=== PATIENT | female | born 1990 | race Caucasian/White ===

== ENCOUNTER 2022-11-12 01:17 | Day surgery (SDC) | payer OTHER, SELFPAY ==
[2022-10-31 08:20] VITALS: BMI 38.7
--- NOTE | 2022-11-11 20:42 | PM.HPGS ---
History of Present Illness History of Present Illness Consent: Risks, benefits, and alternatives have been discussed and questions answered. Patient agrees to proceed with procedure. Chief complaint: GERD and dysphagia Narrative: Yoko Mehta is a 32 year old female who complains of a 1 year history of intermittent dysphagia with obstruction with solid foods.? Her mother has severe esophagus problems.? The patient has frequent reflux symptoms treated with Tums as needed.? She tries to avoid precipitating foods.? Her previous physician is no longer available.? She has been on Lexapro 10 mg daily for anxiety starting about 1 year ago.? She uses alprazolam about 3 times a week. Review of Systems Review of Systems: All systems reviewed & are unremarkable except as noted in HPI and below PMFSH Past Medical History Medical History Anemia hemoglobin 9.2 on 11/21/2018. Anxiety and depression rx meds BMI 38.0-38.9,adult Chronic anxiety Dysphagia Encounter for screening examination for sexually transmitted disease Encounter for wellness examination in adult GERD (gastroesophageal reflux disease) Kidney stones (~05/01/15) Obesity (BMI 30-39.9) Surgical History Surgical History Delivery by section (11/20/18) primary c/s ; arrest of descent; occiput transverse position History of gynecological procedure (01/23/19) mirena iud insertion Family History Family History Grandparent Diabetes mellitus Maternal grandmother Cerebrovascular accident maternal grandfather Heart disease paternal grandfather Other Carcinoma of colon maternal aunt Social History Social History (Updated 10/01/22 @ 13:58 by Latonya Peralta MA) Smoking status: Never smoker Smoking end date: 03/01/14 Alcohol intake: current Drinks per week: 1 Alcohol use details: social Substance use: never Substance use type: does not use Lack of Transportation: No Lack of Food: Never True Current Housing: I Have Housing Concerned About Future Housing: No Difficulty Paying Gas/Electric Bills: No Difficulty Paying for Meds: No Currently Unemployed: No Education: High School Diploma/GED Difficulty w/ Childcare or Family Care: No Living arrangements: with family Additional living arrangements comments: Occupation/Education: occupation 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 Gender identity (if verbalized by the patient): Female Sexual Orientation (if Verbalized by the Patient): Straight or Heterosexual Spiritual care concerns: No Meds Home Medications and Allergies Home Medications Medication Instructions Recorded Confirmed Type alprazolam 0.25 mg tablet 0.25 mg PO TID PRN Anxiety 03/19/22 10/31/22 History escitalopram oxalate 10 mg tablet 10 mg PO DAILY 03/19/22 10/31/22 History levonorgestrel 21 mcg/24 hours (8 1 device intrauterine ONCE 03/19/22 10/31/22 History yrs) 52 mg intrauterine device (Mirena) Allergies Allergy/AdvReac Type Severity Reaction Status Date / Time Penicillins Allergy Intermediate Rash Verified 11/12/22 09:58 Exam Const: General: alert Orientation/consciousness: patient oriented x3 Resp: Auscultation: clear to auscultation bilaterally Cardio: Rhythm: regular rhythm GI: GI Palp: Yes Soft to palpation and No Tenderness to palpation present (GI) Neuro: General: patient oriented x3 Assessment and Plan Assessment and plan (1) Dysphagia: Code(s): R13.10 - Dysphagia, unspecified Status: Acute Assessment and Plan: EGD with possible biopsy or dilatation or cautery.
[2022-11-12 09:59] VITALS: BP 108/66; PULSE 65; RESP 20; TEMP 36.3; O2SAT 100
[2022-11-12] MEDS: LACTATED RINGERS 1,000 ML 150 ML IV CONT (10:20)
--- NOTE | 2022-11-12 10:48 | WPDANESEPPF ---
Anes - Initial Pre Proc Eval Procedure: Operation Date: 11/12/22 11:15 Proposed Procedures p Esophagogastroduodenoscopy EGD - Pasquale Henry MD Date/Time: 11/12/22 10:48 Surgeon: Pasquale Henry MD Pre Op Diagnosis: GERD and dysphagia Patient Data Age: 32 Gender: F Height: 1.55 m Weight: 93.2 kg Last Vital Signs Temp 97.3 F L 11/12/22 09:59 Pulse 65 11/12/22 09:59 Resp 20 11/12/22 09:59 BP 108/66 11/12/22 09:59 Pulse Ox 100 11/12/22 09:59 O2 Del Method Room Air 11/12/22 09:59 Allergies Allergy/AdvReac Type Severity Reaction Status Date / Time Penicillins Allergy Intermediate Rash Verified 11/12/22 09:58 Home Medications Medication Instructions Recorded Confirmed Type alprazolam 0.25 mg tablet 0.25 mg PO TID PRN Anxiety 03/19/22 10/31/22 History escitalopram oxalate 10 mg tablet 10 mg PO DAILY 03/19/22 10/31/22 History levonorgestrel 21 mcg/24 hours (8 1 device intrauterine ONCE 03/19/22 10/31/22 History yrs) 52 mg intrauterine device (Mirena) Patient hx anesthesia problems: none Family hx anesthesia problems: none Results Review: All pre-operative results and documents have been reviewed as part of the pre-operative evaluation. [facility] Past Medical History Medical History (Updated 10/01/22 @ 14:31 by Pete Stewart MD) Anemia hemoglobin 9.2 on 11/21/2018. Anxiety and depression rx meds BMI 38.0-38.9,adult Chronic anxiety Dysphagia Encounter for screening examination for sexually transmitted disease Encounter for wellness examination in adult GERD (gastroesophageal reflux disease) Kidney stones (~05/01/15) Obesity (BMI 30-39.9) Surgical History Surgical History Delivery by section (11/20/18) primary c/s ; arrest of descent; occiput transverse position History of gynecological procedure (01/23/19) mirena iud insertion Family History Family History Grandparent Diabetes mellitus Maternal grandmother Cerebrovascular accident maternal grandfather Heart disease paternal grandfather Other Carcinoma of colon maternal aunt Social History Social History (Updated 10/01/22 @ 13:58 by Latonya Peralta MA) Smoking status: Never smoker Smoking end date: 03/01/14 Alcohol intake: current Drinks per week: 1 Alcohol use details: social Substance use: never Substance use type: does not use Lack of Transportation: No Lack of Food: Never True Current Housing: I Have Housing Concerned About Future Housing: No Difficulty Paying Gas/Electric Bills: No Difficulty Paying for Meds: No Currently Unemployed: No Education: High School Diploma/GED Difficulty w/ Childcare or Family Care: No Living arrangements: with family Additional living arrangements comments: Occupation/Education: occupation 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 Gender identity (if verbalized by the patient): Female Sexual Orientation (if Verbalized by the Patient): Straight or Heterosexual Spiritual care concerns: No Anes - Eval Final PreProcedure Day of Procedure 11/12/22 10:48 Patient weight: obese Heart: regular rate and rhythm Lungs: clear to auscultation Airway: Mallampati scale class II Neurological: alert and oriented Last oral intake: >/= 8 hours ASA classification: III Emergent: no Anesthetic plan: proceed Anesthesia type and monitoring: general GIVS and standard monitoring Results Review: All pre-operative results and documents have been reviewed as part of the pre-operative evaluation. Informed Consent: The patient's anesthetic plan and its attendant risks and benefits were discussed with the patient/family/POA. Questions were solicited and answers provided to the satisfaction of the patient/family/POA.
[2022-11-12 11:09] VITALS: BP 136/106; PULSE 62; RESP 17; O2SAT 96
[2022-11-12 11:19] VITALS: BP 98/60; PULSE 61; RESP 20; O2SAT 95
[2022-11-12 11:29] VITALS: BP 112/71; PULSE 71; RESP 19; O2SAT 98
== END 2022-11-12 11:42 | disposition home or self-care (01) ==
PROVIDERS: PCP Family Medicine; Visit Provider Internal Medicine Gastroenterology
PROC: 0DJ08ZZ Inspection of Upper Intestinal Tract, Via Natural or Artificial Opening Endoscopic (ICD-10-PCS; CPT 43235; principal; 2022-11-12 11:15)
DX: K22.2 Esophageal obstruction (principal); K20.0 Eosinophilic esophagitis; K21.9 Gastro-esophageal reflux disease without esophagitis; F41.8 Other specified anxiety disorders; E66.9 Obesity, unspecified; Z68.38 Body mass index [BMI] 38.0-38.9, adult
CPT/HCPCS: 43249; 88305; C1726; J2704; J7120

== ENCOUNTER 2024-12-11 12:57 | Outpatient (CLI) | payer OTHER, SELFPAY ==
--- OUTSIDE RECORDS SUMMARY | 2024-12-11 13:06 | XMS_ITS | Clinical Summary ---
Author Organization [facility] Address [address] [place] [address] Care Team Providers Care Clinical Trial Manager Name Role Phone Pete Stewart MD Primary Care Provider [phone] Source Comments [facility],non-owned Affiliates and Associated Physician Practices is amultiple site organization consisting of ambulatory clinics and hospital sitesin [place], [place], [place]. This disclosure is being madepursuant to the Care Everywhere program and may not contain all information available regarding this patient. Last updated 18.[facility] Allergies Active Allergy Reactions Criticality Noted Date Comments Penicillins Rash Medium 03/11/2014 Medications * Be aware that medications may not be up to date on this document. Alwaysverify current medications with the patient. Vit-Fe Fumarate-FA ( vitamin) 28-0.8 MG tablet Take 1 (one) tablet by mouth once daily Active busPIRone (Buspar) 15 MG tablet Take 1 (one) tablet by mouth 2 times daily 60 tablet 1 5 Active busPIRone (Buspar) 10 MG tablet Take 1 (one) tablet by mouth 3 times daily 12/03/19 25 Discontinu ed(Dose Adjustment ) Active Problems Problem Noted Date Diagnosed Date Severe obesity due to excess calories affecting in second trimester 12/02/2024 History of anemia 12/02/2024 History of section 12/02/2024 Estimated Date of Delivery Comme nts Yes 04/02/2025 Based on last me nstrual period of 06/26/2024 Encounters Date Type Department Care Team Description 12/11/2024 Telephone [facility] Maternal & Care [address] [place] [address] Lily Ng RN Question 12/02/2024 10:59 AM CDT - 12/02/2024 11:59 PM CDT Hospital Encounter [facility] [address] [place] [id number] Ariel Light DO Head, Annmarie Vivar MD DONATIONS ATTENDANT Discharge Disposition: Home or Self Care 11/30/2024 1:00 PM CDT - 11/30/2024 11:59 PM CDT Hospital Encounter [facility] [address] [place] [id number] Ariel Light DO DONATIONS ATTENDANT Discharge Disposition: Home or Self Care from Last 3 Months Social History Tobacco Use Types Packs/Day Years Used Date Smoking Tobacco: Never Alcohol Use Standard Drinks/Week Comments Yes 0 (1 standard drink = 0.6 oz pur e alcohol) Estimated Date of Delivery Comme nts Yes 04/02/2025 Based on last sd nstrual period of 06/26/2024 Sex and Gender Information Value Date Recorded Sex Assigned at Not on file Legal Sex Female 6:28 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 Gender Identity Not on file Sexual Orientation Not on file Last Filed Vital Signs Vital Sign Reading Time Taken Comments Blood Pressure 105/57 12/02/2024 11:47 AM CDT Pulse 98 12/02/2024 11:47 AM CDT Temperature 36.9 C (98.5 F) 03/11/2014 10:36 AM CDT Respiratory Rate 20 03/11/2014 10:36 AM CDT Oxygen Saturation 100% 03/11/2014 10:36 AM CDT Inhaled Oxygen Concentration - - Weight 99.3 kg (219 lb) 12/02/2024 11:47 AM CDT Height 165.1 cm (5' 5) 03/11/2014 10:36 AM CDT Body Mass Index - - Plan of Treatment Upcoming Encounters Date Type Department Care Team (Late st Contact Info) Description 01/06/2025 9:00 AM CDT Appointment [facility] Maternal & Care [address] [phone] Health Maintenance Due Date Last Done Comments HIV SCREENING 2007 HEPATITIS C SCREENING 06/15/2010 DTAP/TDAP/TD VACCINES (1 - Tdap) 2011 HEPATITIS B VACCINE (1 of 3 - 19+ 3-dose series) 2011 PAP SMEAR 2013 COVID-19 VACCINE (1 - 2023-2 5 season) 2024 DEPRESSION SCREENING 07/01/2024 OB-ONE HOUR GLUCOSE 12/25/2024 OB-TDAP CURRENT 01/01/2025 07/01/2006 OB-RHOGAM INJECTION 01/08/2025 INFLUENZA VACCINE (Season Ended) 2025 Respiratory Syncytial Virus (RSV) Vaccine Pt: or over 60 yrs (1 - Risk 1-dose series) 03/01/2025 ZOSTER VACCINE (1 of 2) 2042 HIB VACCINE Aged Out No longer eligi ble based on patient's age to complete this topic HPV VACCINE Aged Out No longer eligi ble based on patient's age to complete this topic MENINGOCOCCAL (Group B) VACC INE SHARED DECISION-MAKING Aged Out No longer eligibl e based on patient's age to complete this topic MENINGOCOCCAL GROUPS A/C/Y/W VACCINE Aged Out No longer eligible b ased on patient's age to complete this topic PNEUMOCOCCAL VACCINE Aged Out No long er eligible based on patient's age to complete this topic Procedures Procedure Name Priority Date/Time Associated Diagnosis Comments SONOGRAM - COMPLETE Routine 11/30/2024 1 2:56 PM CDT Obesity in , antepartum (HCC) Encounter for anatomic survey (HCC) H/O: from Last 3 Months Results * SONOGRAM - COMPLETE (11/30/2024 12:56 PM CDT) Linked Results Indication ======== Anatomy Survey Obesity, Class III prior primary LTCS History ====== OB History 2. Para 1 [id number] 1. live 11/20/2018. Gest. age 39 w + 0 d. Weight 3,622 g. Sex of child: male. Details: delivery (primary LTCS) failure to progress in labor (2nd stage) Lab Tests Test Date Result NIPT Low risk, Male (per patient) Maternal Assessment Physical Exam Height 155 cm, 5 ft 1 in. Weight 99 kg, 218 lb. Initial weight 93 kg, 206 lb. BMI 41.19 kg/m . Initial BMI 38.92 kg/m . Weight gain 5 kg, 12 lb Method ====== Transabdominal and transvaginal ultrasound examination. View: Sufficient ========= Park . Number of fetuses: 1 Dating ====== Date Details Gest. age AKBAR LMP 06/26/2024 22 w + 3 d 04/02/2025 Previous U/S 09/09/2024 GA, GA 11 w + 1 d 22 w + 6 d 03/30/2025 U/S 11/30/2024 based upon AC, BPD, Femur, HC 23 w + 1 d 03/28/2025 Assigned dating based on the LMP, selected on 11/30/2024 22 w + 3 d 04/02/2025 General Evaluation Cardiac activity present. FHR 152 bpm. Presentation: cephalic Placenta: Placental site: anterior no previa. Placental cxth-wg-gquzridm os distance 69 mm Umbilical cord: Cord vessels: 3 vessel cord. Insertion site: normal insertion Amniotic fluid: Amount of AF: normal. MVP 6.3 cm Biometry BPD 54.1 mm 22w 3d 48% Hadlock HC 211.4 mm 23w 1d 69% Hadlock Cerebellum tr 24.9 mm 83% [place] Nuchal fold 4.1 mm AC 195.1 mm 24w 1d 90% Hadlock Femur 39.9 mm 22w 6d 54% Hadlock Humerus 41.2 mm 25w 0d 98% Jackson HC / AC 1.08 -/- Hadlock Weight Calculation: EFW 603 g 90% Hadlock EFW (lb,oz) 1 lb 5 oz EFW by Hadlock ([id number]) Head / Face / Neck Biometry: CM 5.9 mm 61% Nicolaides LGA Growth Overview Exam date GA BPD (mm) HC (mm) AC (mm) FL (mm) HL (mm) EFW (g) 11/30/2024 22w 3d 54.1 48% 211.4 69% 195.1 90% 39.9 54% 41.2 98% 603 90% Anatomy The following structures appear normal: Head / Neck Cranium. Lateral ventricles. Choroid plexus. Midline falx. Cavum septi pellucidi. Cerebellum. Cisterna magna. Thalami. Nuchal fold. Face Lips. Profile. Nose. Nasal bone. Orbits. Heart / Thorax 4-chamber view. RVOT view. LVOT view. 3-vessel view. 3-vtjvvy-elbkgfz view. Situs. Aortic arch view. Bicaval view. Ductal arch view. Great vessels. Right lung. Left lung. Diaphragm. Abdomen Cord insertion. Stomach. Kidneys. Bladder. Bowel. Genitals. Spine Cervical spine. Thoracic spine. Lumbar spine. Sacral spine. Extremities / Skeleton Arms. Hands. Legs. Feet. sex: male. Maternal Structures Cervix Normal Approach - Transvaginal: Cervical length 5.60 cm Funneling absent Right Ovary Normal Left Ovary Normal Impression ========= Here today for anatomical survey. She had opted for NIPT which was reported as low risk. Single live intrauterine at 22w 3d The size is suspected LGA by her established dates. The amniotic fluid volume is normal. Normal appearing anterior placenta. No evidence of an accreta. The transvaginal cervical length is normal, measuring 5.6 cm long and closed. No funneling. No major malformations were seen within the limitations of ultrasound. Comment ======== The biometry is showing good interval growth and the estimated weight is suspected LGA she is well dated by LMP and 11 week ultrasound. This is most likely constitutional due to the fact that her prior child at term weight 8 lb. No prior history of GDM. But can not rule out GDM with certainty and recommend glucose screen as scheduled by her primary OB provider. Normal-appearing anterior placenta. No evidence of an accreta. However ultrasound is not always diagnostic for an accreta and would recommend clinical correlation light of prior section. The anatomical survey showed no gross abnormalities. Both ultrasound and screening/testing have their limitations in detecting all congenital anomalies and chromosomal abnormalities/inh erited disorders or genetic syndromes. Follow-up ======== Due to increased BMI greater than 35 potential for poor outcome and suspected LGA recommend serial growth ultrasounds every 4-6 weeks starting at 28 weeks and to initiate weekly testing at 36 weeks due to the increased BMI. Pre term labor and preeclampsia precautions along with kick counts. Thank you for allowing us to partake in your patient's care. Coding ====== Procedures 19157: US Preg Uterus Detailed 18197: US Preg Uterus Transvaginal Dental Fix RX PACS Anatomical Region Laterality Modality Other 11/30/2024 12:5 6 PM CDT us Jacek Godoy MD [facility] ORDERABLES Edited Result - Final from Last 3 Months Insurance [address] [place], [place] [address]N[employer] * Guarantor: Yoko Jain Account Type Relation to Patient Date of Phone Billing Address Personal/Family Spouse Care Teams Clinical Trial Manager Relationship Specialty Start Date End Date Pete Stewart MD PCP - General 03/11/14
--- OUTSIDE RECORDS SUMMARY | 2024-12-11 13:06 | XMS_ITS | Encounter Summary ---
Author Organization [facility] Address [address] [place] [address] Care Team Providers Care Electrical Research Engineer Name Role Phone Pete Stewart MD Primary Care Provider [phone] Reason for Visit * Reason Onset Date Comments Question 12/11/2024 Encounter Details Date Type Department Care Team (Late Contact Info) Description 12/11/2024 Telephone [facility] Maternal & Care [address] [place] [address] Lily Ng RN Question Social History Tobacco Use Types Packs/Day Years Used Date Smoking Tobacco: Never Alcohol Use Standard Drinks/Week Comments Yes 0 (1 standard drink = 0.6 oz pur e alcohol) Estimated Date of Delivery Comme nts Yes 04/02/2025 Based on last me nstrual period of 06/26/2024 Sex and Gender Information Value Date Recorded Sex Assigned at Not on file 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
[2024-12-11 13:46] VITALS: BP 117/68; PULSE 91
[2024-12-11 13:55] LABS: Basophils Absolute Auto 0.1 K/mm3 (0.0-0.1); Basophils Percent Auto 0.4 % (0.2-1.2); Eosinophils Absolute Auto 0.6 K/mm3 (0-0.3); Eosinophils Percent Auto 3.8 % (0-4.4); Hematocrit 34.2 % (37.0-47.0); Hemoglobin 11.1 g/dL (12.0-15.0); Immature Granulocyte Absolute 0.31 K/mm3 (0.00-0.031); Immature Granulocyte Percent A 2.1 % (0-0.5); Lymphocytes Absolute Auto 2.02 K/mm3 (0.9-3.2); Lymphocytes Percent Auto 13.5 % (18.3-44.2); Mean Corpuscular HGB Conc 32.5 g/dl (32-36); Mean Corpuscular Hemoglobin 28.4 pg (26-34); Mean Corpuscular Volume 87.5 fl (80-100); Mean Platelet Volume 10.4 fl (7.4-10.4); Monocytes Absolute Auto 0.8 K/mm3 (0.1-0.6); Monocytes Percent Auto 5.2 % (2.6-8.5); Neutrophils Absolute Auto 11.2 K/mm3 (1.3-6.7); Platelet Count Result 236 k/mm3 (150-375); Red Blood Count 3.91 M/mm3 (4.2-5.4); Red Cell Distribution Width 13.6 % (11.5-14.5); White Blood Count 14.9 K/mm3 (4.5-10.0)
[2024-12-11 13:59] LABS: Alanine Aminotransferase 16 U/L (6-35); Albumin Level 3.6 g/dL (3.5-5.1); Alkaline Phosphatase 71 U/L (38-126); Anion Gap 7 mmol/L (4-12); Aspartate Amino Transferase 19 U/L (14-36); Bilirubin,Total 0.2 mg/dL (0.2-1.3); Blood Urea Nitrogen 6 mg/dL (7-17); Calcium 9.8 mg/dL (8.4-10.2); Carbon Dioxide 21 mmol/L (22-30); Chloride 108 mmol/L (98-107); Estimated Glomerular Filt Rate > 60; Glucose 95 mg/dL (65-110); Potassium 3.9 mmol/L (3.4-5.0); Sodium 136 mmol/L (137-145); Total Protein 6.6 g/dL (6.3-8.2); Uric Acid 4.7 mg/dL (2.5-7.5)
[2024-12-11 14:01] VITALS: BP 112/70; PULSE 97
[2024-12-11 14:12] LABS: Add Urine Microscopic? YES; Appearance Urine Clear (Clear); Bacteria Urine None Seen /hpf; Bilirubin Urine Negative (Negative); Blood Urine Negative (Negative); Color Urine Yellow (Yellow); Glucose Urine UA Negative (Negative); Ketones Urine Negative (Negative); Leukocyte Esterase Ur Trace LEU/UL (Negative); Nitrate Urine Negative (Negative); Non Pathogenic Casts 0-2; Protein Urine Negative (Negative); RBC Urine 0-2 /hpf (0-2); Specific Grav Ur 1.007 (1.001-1.035); Squamous Epithelial Cell Urine None Seen /hpf (Few); Urobilinogen Urine 0.2 mg/dL (<2.0); WBC Urine 0-5 /hpf (0-3)
[2024-12-11 14:15] LABS: Creatinine Urine 32.5 mg/dL; Total Protein Urine Random 18 mg/dL; Ur Ttl Prot Creatinine Ratio 0.55 mg/mg (0-0.20)
[2024-12-11 14:16] VITALS: BP 115/62; PULSE 83
[2024-12-11 14:49] VITALS: BP 115/69; PULSE 99; RESP 16; TEMP 36.6
--- NOTE | 2024-12-11 14:54 | PC.NURSE ---
1445--Pt sent home with 24 hour urine and directions. Has appt in office on 12/14
== END 2024-12-11 14:45 | disposition home or self-care (01) ==
LOC: ANHOBOP 13:03 → ANHOBPP 13:39
PROVIDERS: Obstetrics & Gynecology; PCP Nurse Practitioner Family; Visit Provider Obstetrics & Gynecology
DX: O13.9 Gestational [pregnancy-induced] hypertension without significant proteinuria, unspecified trimester (principal); Z3A.00 Weeks of gestation of pregnancy not specified
CPT/HCPCS: 36415; 59025; 80053; 81001; 82570; 84156; 84550; 85025; 99199

== ENCOUNTER 2024-12-13 14:15 | Outpatient (NON) | payer OTHER, SELFPAY ==
--- OUTSIDE RECORDS SUMMARY | 2024-12-13 14:23 | XMS_ITS | Clinical Summary ---
Author Organization [facility] Address [address] [place] [address] Care Team Providers Care Restrooms Or Lounges Maid Name Role Phone Pete Stewart MD Primary Care Provider [phone] Source Comments [facility],non-owned Affiliates and Associated Physician Practices is amultiple site organization consisting of ambulatory clinics and hospital sitesin [place], [place], [place] and [place]. This disclosure is being madepursuant to the Care Everywhere program and may not contain all information available regarding this patient. Last updated 18.[facility] Allergies Active Allergy Reactions Criticality Noted Date [...] Type Department Care Team Description 12/11/2024 Telephone [facility] Maternal & Care [address] [place] [address] Lily Ng RN Question 12/02/2024 10:59 AM CDT - 12/02/2024 11:59 PM CDT Hospital Encounter [facility] M[facility] & [facility] [address] [place] [id number] Ariel Light DO Head, Annmarie Vivar MD EDITOR & CO FOUNDER Discharge Disposition: Home or Self Care 11/30/2024 1:00 PM CDT - 11/30/2024 11:59 PM CDT Hospital Encounter [facility] Care [address] [place] [id number] Ariel Light DO EDITOR & CO FOUNDER Discharge Disposition: Home or Self Care from Last 3 Months Social History Tobacco Use Types Packs/Day Years Used Date Smoking Tobacco: Never Alcohol Use Standard Drinks/Week Comments Yes 0 (1 standard drink = 0.6 oz pur e alcohol) Estimated Date of Delivery Comme nts Yes 04/02/2025 Based on last de nstrual period of 06/26/2024 Sex and Gender Information Value Date Recorded Sex Assigned at Not on file Legal Sex Female 6:28 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 Para 1 [id number] 1. live 11/20/2018. Gest. age 39 w [...] Placenta: Placental site: anterior no previa. Placental nzem-jv-jbgvljlg os distance 69 mm Umbilical cord: Cord [...] 1 lb 5 oz EFW by Hadlock ([id number]) Head / Face / Neck Biometry: CM [...] view. RVOT view. LVOT view. 3-vessel view. 5-rrujsk-pxqdroz view. Situs. Aortic arch view. Bicaval view. [...] in your patient's care. Coding ====== Procedures 31884: US Preg Uterus Detailed 11797: US Preg Uterus Transvaginal Topple Track PACS Anatomical Region Laterality Modality Other 11/30/2024 12:5 6 PM CDT us Jacek Godoy MD [facility] ORDERABLES Edited Result - Final from Last 3 Months Insurance [address] [place], [place] [address]NICK [employer] * Guarantor: Yoko Jain Account Type Relation to Patient Date of Phone Billing Address Personal/Family Spouse Care Teams Restrooms Or Lounges Maid Relationship Specialty Start Date End Date Pete Stewart MD PCP - General 03/11/14
[2024-12-13 14:56] VITALS: BMI 41.2
[2024-12-13 15:43] LABS: Collection Time Urine 24 HOURS; Patient Weight 218 Lbs
[2024-12-13 15:48] LABS: Total Volume 24 Hour Urine 3200 ml
[2024-12-13 15:53] LABS: Specific Gravity Ur 1.012
[2024-12-13 15:59] LABS: Creatinine Clearance Urine 222.3 ml/min (75-125); Creatinine Urine 62.1 mg/dL; Serum Creat 0.55; Total Protein Urine 24 Hr 416 mg/24hr (28-141); Total Protein Urine Random 13 mg/dL
== END 2024-12-13 14:16 | disposition home or self-care (01) ==
LOC: ANHOBOP 14:21
PROVIDERS: PCP Nurse Practitioner Family; Visit Provider Obstetrics & Gynecology
DX: Z34.90 Encounter for supervision of normal pregnancy, unspecified, unspecified trimester (principal); Z3A.00 Weeks of gestation of pregnancy not specified
CPT/HCPCS: 81050; 82575; 84156

== ENCOUNTER 2025-03-25 09:00 | Inpatient (IN) | payer OTHER, SELFPAY ==
[2025-03-25] VITALS (50 sets, daily range): BP systolic 81–186; BP diastolic 30–118; PULSE 74–173; RESP 16–19; TEMP 36.1–37.1; O2SAT 95–100; BMI 42.9
[2025-03-25 12:28] LABS: Hematocrit 40.8 % (37.0-47.0); Hemoglobin 13.0 g/dL (12.0-15.0); Immature Granulocyte Percent A 1.9 % (0-0.5); Lymphocytes Absolute Auto 1.95 K/mm3 (0.9-3.2); Mean Corpuscular HGB Conc 31.9 g/dl (32-36); Mean Corpuscular Hemoglobin 27.5 pg (26-34); Mean Corpuscular Volume 86.4 fl (80-100); Nucleated Red Blood Cells Absolute Auto 0.000 K/mm3 (0.0-0.012); Nucleated Red Blood Cells Perc 0.0 % (0.0-0.2); Platelet Count Result 225 k/mm3 (150-375); Red Blood Count 4.72 M/mm3 (4.2-5.4); White Blood Count 15.7 K/mm3 (4.5-10.0)
[2025-03-25] MEDS: ACETAMINOPHEN 500 MG TABLET 1000 MG PO ×2 (12:48→20:25)
[2025-03-25] MEDS: fentaNYL CITRATE INJ (*CRX) 100 MCG/2 ML VIAL IV PUSH (12:51)
[2025-03-25] MEDS: LACTATED RINGERS 1,000 ML 125 ML IV CONT (13:01)
[2025-03-25 13:15] LABS: Syphilis IgG/IgM Antibody Non-Reactive (Nonreactive)
--- NOTE | 2025-03-25 13:27 | P.PNAN_ITS ---
Anes - Initial Pre Proc Eval Procedure: Operation Date: 03/25/25 14:00 Proposed Procedures p Repeat Section with Tubal Ligation - Jacek Godoy MD Date/Time: 03/25/25 13:27 Surgeon: Jacek Godoy MD Pre Op Diagnosis: C Section Patient Data Age: 34 Gender: F Height: 1.55 m Weight: 103 kg Last Vital Signs Pulse Ox 99 03/25/25 13:19 O2 Del Method Room Air 03/25/25 13:10 Allergies Allergy/AdvReac Type Severity Reaction Status Date / Time Penicillins Allergy Intermediate Rash Verified 03/22/25 09:06 Latex, Natural Rubber Allergy swelling Verified 03/22/25 09:06 Home Medications ?Medication ?Instructions ?Recorded ?Confirmed ?Type docosahexaenoic acid 200 mg mg PO 08/19/24 03/22/25 Hi story capsule ( DHA) buspirone 10 mg tablet 15 mg PO BID 12/14/24 History Laboratory Tests 03/25/25 12:22 WBC 15.7 H K/mm3 (4.5-10.0) RBC 4.72 M/mm3 (4.2-5.4) Hgb 13.0 g/dL (12.0-15.0) Hct 40.8 % (37.0-47.0) MCV 86.4 fl (80-100) MCH 27.5 pg (26-34) MCHC 31.9 L g/dl (32-36) RDW 14.5 % (11.5-14.5) Plt Count 225 k/mm3 (150-375) MPV 10.9 H fl (7.4-10.4) Immature Gran % (Auto) 1.9 H % (0-0.5) Neut % (Auto) 78.8 H % (45.5-73.1) Lymph % (Auto) 12.4 L % (18.3-44.2) [place] % (Auto) 4.3 % (2.6-8.5) Eos % (Auto) 2.2 % (0-4.4) Baso % (Auto) 0.4 % (0.2-1.2) Lymph # (Auto) 1.95 K/mm3 (0.9-3.2) [place] # (Auto) 0.7 H K/mm3 (0.1-0.6) Eos # (Auto) 0.4 H K/mm3 (0-0.3) Baso # (Auto) 0.1 K/mm3 (0.0-0.1) Abs Immat Gran (auto) 0.30 H K/mm3 (0.00-0.031) Absolute Neuts (auto) 12.3 H K/mm3 (1.3-6.7) Absolute Nucleated RBC 0.000 K/mm3 (0.0-0.012) Nucleated RBC % 0.0 % (0.0-0.2) Syphilis IgG/IgM Ab Non-reactive (Nonreactive) Blood Type O Positive Antibody Screen Negative Patient hx anesthesia problems: none Family hx anesthesia problems: none Results Review: All pre-operative results and documents have been reviewed as part of the pre-operative evaluation. [facility] Past Medical History Medical History BMI 37.0-37.9, adult Encounter for IUD removal Elevated TSH BMI 33.0-33.9,adult Seasonal allergies Benign esophageal stricture (~11/12/22) EGD with benign-appearing distal esophageal stricture dilated 11/12/2022. Biopsy reveals diffuse eosinophilic esophagitis Encounter for wellness examination in adult Anemia hemoglobin 9.2 on 11/21/2018. Hemoglobin 14.0 with iron 83 with 27% saturation and ferritin 86 with vitamin B12 1200 1, folic acid 10.5 on 10/26/2022. BMI 38.0-38.9,adult Obesity (BMI 30-39.9) Chronic anxiety GERD (gastroesophageal reflux disease) EGD 11/12/2022 with biopsy showing esophagitis with eosinophils. Dysphagia Esophageal stricture at the GEJ, dilated on EGD 11/12/2022. Dr. Henry Encounter for screening examination for sexually transmitted disease Kidney stones (~05/01/15) Anxiety and depression rx meds Surgical History Surgical History History of gynecological procedure (01/22/24) mirena iud removal Delivery by section (11/20/18) primary c/s ; arrest of descent; occiput transverse position History of gynecological procedure (01/23/19) mirena iud insertion Family History Family History Grandparent Diabetes mellitus Maternal grandmother Cerebrovascular accident maternal grandfather Heart disease paternal grandfather Other Carcinoma of colon maternal aunt Social History Social History Smoking status: Never smoker Second hand tobacco smoke exposure: No Smoking end date: 03/01/14 Alcohol intake: former Drinks per week: 1 Alcohol use details: social Substance use: never Substance use type: does not use Do You Feel Safe in your Home?: Yes Lack of Transportation: No Lack of Food: Never True Current Housing: I Have Housing Concerned About Future Housing: No Difficulty Paying Gas/Electric Bills: No Difficulty Paying for Meds: No Currently Unemployed: No Education: High School Diploma/GED Difficulty w/ Childcare or Family Care: No Living arrangements: with family Additional living arrangements comments: Occupation/Education: occupation 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 Gender identity (if verbalized by the patient): Female Sexual Orientation (if Verbalized by the Patient): Straight or Heterosexual Spiritual care concerns: No Anes - Eval Final PreProcedure Day of Procedure 03/25/25 13:27 Patient weight: morbidly obese Heart: regular rate and rhythm Lungs: clear to auscultation Airway: Mallampati scale class II Neurological: alert and oriented Last oral intake: >/= 8 hours ASA classification: III Emergent: no Anesthetic plan: proceed Anesthesia type and monitoring: regional spinal and standard monitoring Results Review: All pre-operative results and documents have been reviewed as part of the pre- operative evaluation. Informed Consent: The patient's anesthetic plan and its attendant risks and benefits were discussed with the patient/family/POA. Questions were solicited and answers provided to the satisfaction of the patient/family/POA.
[2025-03-25] MEDS: FAMOTIDINE 20 MG/2 ML VIAL IV PUSH (13:36)
[2025-03-25] MEDS: ONDANSETRON INJ 4 MG/2 ML VIAL IV PUSH (13:36)
--- NOTE | 2025-03-25 13:47 | PM.IMHP ---
H&P: HPI History of Present Illness Date/Time: 03/25/25 13:47 34-year-old 2 para 100 female presents at 3867 weeks gestation early labor. She has had a prior delivery and is scheduled for repeat delivery tomorrow, in labor today with no rupture membranes or bleeding and therefore we will proceed today with her delivery. Chief Complaint: Review of Systems Review of Systems: All systems reviewed & are unremarkable except as noted in HPI and below PMFSH Past Medical History Medical History BMI 37.0-37.9, adult Encounter for IUD removal Elevated TSH BMI 33.0-33.9,adult Seasonal allergies Benign esophageal stricture (~11/12/22) EGD with benign-appearing distal esophageal stricture dilated 11/12/2022. Biopsy reveals diffuse eosinophilic esophagitis Encounter for wellness examination in adult Anemia hemoglobin 9.2 on 11/21/2018. Hemoglobin 14.0 with iron 83 with 27% saturation and ferritin 86 with vitamin B12 1200 1, folic acid 10.5 on 10/26/2022. BMI 38.0-38.9,adult Obesity (BMI 30-39.9) Chronic anxiety GERD (gastroesophageal reflux disease) EGD 11/12/2022 with biopsy showing esophagitis with eosinophils. Dysphagia Esophageal stricture at the GEJ, dilated on EGD 11/12/2022. Dr. Henry Encounter for screening examination for sexually transmitted disease Kidney stones (~05/01/15) Anxiety and depression rx meds Surgical History Surgical History History of gynecological procedure (01/22/24) mirena iud removal Delivery by section (11/20/18) primary c/s ; arrest of descent; occiput transverse position History of gynecological procedure (01/23/19) mirena iud insertion Family History Family History Grandparent Diabetes mellitus Maternal grandmother Cerebrovascular accident maternal grandfather Heart disease paternal grandfather Other Carcinoma of colon maternal aunt Social History Social History Smoking status: Never smoker Second hand tobacco smoke exposure: No Smoking end date: 03/01/14 Alcohol intake: former Drinks per week: 1 Alcohol use details: social Substance use: never Substance use type: does not use Do You Feel Safe in your Home?: Yes Lack of Transportation: No Lack of Food: Never True Current Housing: I Have Housing Concerned About Future Housing: No Difficulty Paying Gas/Electric Bills: No Difficulty Paying for Meds: No Currently Unemployed: No Education: High School Diploma/GED Difficulty w/ Childcare or Family Care: No Living arrangements: with family Additional living arrangements comments: Occupation/Education: occupation 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 Gender identity (if verbalized by the patient): Female Sexual Orientation (if Verbalized by the Patient): Straight or Heterosexual Spiritual care concerns: No Meds Home Medications and Allergies Home Medications ?Medication ?Instructions ?Recorded ?Confirmed ?Type docosahexaenoic acid 200 mg mg PO 08/19/24 03/22/25 History capsule ( DHA) buspirone 10 mg tablet 15 mg PO BID 12/14/24 03/22/25 History Allergies Allergy/AdvReac Type Severity Reaction Status Date / Time Penicillins Allergy Intermediate Rash Verified 03/22/25 09:06 Latex, Natural Rubber Allergy swelling Verified 03/22/25 09:06 Vital Signs Vital Signs - 24 hr 03/25/25 12:54 03/25/25 12:59 03/25/25 13:04 Pulse Oximetry 98 100 95 Oxygen Delivery 03/25/25 13:09 03/25/25 13:10 03/25/25 13:14 Pulse Oximetry 97 100 Oxygen Delivery Room Air 03/25/25 13:19 Pulse Oximetry 99 Oxygen Delivery Exam Resp: Effort & Inspection: normal respiratory effort Auscultation: clear to auscultation bilaterally Cardio: Rate: regular rate Rhythm: regular rhythm GI: Inspection: normal to inspection Auscultation: normal bowel sounds : Bimanual exam- vagina & uterus: enlarged (Fundal height 40cm heart tone 140) H&P: Results Labs Labs: Short CBC 03/25/25 Range/Units 12:22 WBC 15.7 H (4.5-10.0) K/mm3 Hgb 13.0 (12.0-15.0) g/dL Hct 40.8 (37.0-47.0) % Plt Count 225 (150-375) k/mm3 Assessment and Plan Assessment and plan (1) 39 weeks gestation of : Code(s): Z3A.39 - 39 weeks gestation of Status: Acute (2) Previous delivery affecting : Code(s): O34.219 - Maternal care for unspecified type scar from previous delivery Status: Acute
--- OUTSIDE RECORDS SUMMARY | 2025-03-25 14:32 | XMS_ITS | Clinical Summary ---
Author Organization [facility] Address [address] [place] [address] Care Team Providers Care English Language Learner Teacher Name Role Phone Claudette Kruger DONALD Primary Care Provider [phone] Allergies Active Allergy Reactions Criticality Noted Date Comments Penicillins Rash Medium 03/11/2014 Medications ALPRAZolam 0.5 MG tablet Take 1 tablet (0.5 mg total) by mouth nightly as needed for Sleep. Active escitalopram 10 MG tablet Take 1 tablet (10 mg total) by mouth daily. Active ondansetron (ZOFRAN ODT) 4 MG disintegrating tablet Take 1 tablet (4 mg total) by mouth every 8 (eight) hours as needed for Nausea. 15 tablet 2 Active dextromethorphan-gu aiFENesin ER (MUCINEX DM) 30-600 MG TABLET SR 12 HR 12 hr tabletIndications:A cute cough,Influenza A Take 1 tablet by mouth every 12 (twelve) hours as needed. 28 tablet 2 Active methylPREDNISolone, CONSTANZA, (MEDROL DOSEPAK) 4 MG tabletIndications:I nfluenza A,Fluid level behind tympanic membrane of both ears Take 1 tablet (4 mg total) by mouth daily. 6 TABLETS ON DAY ONE, 5 TABLETS DAY TWO, 4 TABLETS DAY THREE, 3 TABLETS DAY FOUR, 2 TABLETS DAY FIVE, AND 1 TABLET DAY SIX 1 each 2 Active Family History Medical History Relation Comments Diabetes Father Heart Disease Maternal Grandfather Relation Status Comments Father Maternal Grandfather Social History Tobacco Use Types Packs/Day Years Used Date Smoking Tobacco: Never Smokeless Tobacco: Never Tobacco Cessation:Counseling Given: No Alcohol Use Standard Drinks/Week Comments No 0 (1 standard drink = 0.6 oz pur e alcohol) AUDIT-C Answer Date Recorded Frequency of Alcohol Consumption Never 07/06/2019 Average Number of Drinks Not on file 020 Frequency of Binge Drinking Not on file 11/2019 Comments No Sex and Gender Information Value Date Recorded Sex Assigned at Not on file Legal Sex Female 7:02 PM CDT Gender Identity Not on file Sexual Orientation Not on file Last Filed Vital Signs Vital Sign Reading Time Taken Comments Blood Pressure 104/66 11/28/2023 12:53 AM CDT Pulse 85 11/28/2023 12:53 AM CDT Temperature 36.7 C (98 F) 11/28/2023 12:53 AM CDT Respiratory Rate 16 11/28/2023 12:53 AM CDT Oxygen Saturation 97% 11/28/2023 12:53 AM CDT Inhaled Oxygen Concentration - - Weight 78 kg (172 lb) 11/27/2023 11:27 PM CDT Height 154.9 cm (5' 1) 11/27/2023 11:27 PM CDT Body Mass Index 32.5 11/27/2023 11:27 PM CDT Plan of Treatment Health Maintenance Due Date Last Done Comments Cervical Cancer Screening Pap Smear (Age 30 to 64) Every 3 Years 1992 Annual Physical 1995 Hepatitis C 2010 DTaP, Tdap and Td Vaccines (6 - Td or Tdap) 07/01/2016 07/01/2006, 11/02/1998, 04/20/1998, Additional history exists HPV Vaccines (1 - 3-dose SCDM series) 2019 Cervical Cancer Screening Pap with HPV Testing (Age 30 to 64) Every 5 Years 2022 Cervical Cancer Screening with HPV 2022 COVID-19 Vaccine ( season) 2025 Hepatitis B Vaccines Completed 07/26/2003, 01/22/2003, 12/23/2002 Meningococcal B Vaccine Aged Out No l onger eligible based on patient's age to complete this topic Meningococcal Vaccine Aged Out No allison simon eligible based on patient's age to complete this topic Pneumococcal Vaccine: Pediatrics (0 to 5 Years) and At-Risk Patients (6 to 49 Years) Aged Out No longer eligible based on patient's age to complete this topic RSV Immunizations Under 20 Months Aged Out No longer eligible based on patient's age to complete this topic Insurance [employer] Care Teams English Language Learner Teacher Relationship Specialty Start Date End Date Claudette Kruger APNP [address] [phone] PCP - General Nurse Practitioner Family 11/27/23
--- OUTSIDE RECORDS SUMMARY | 2025-03-25 14:32 | XMS_ITS | Clinical Summary ---
Author Organization [facility] [employer] Address [address] [place] [address] Care Team Providers Care Commodity Buyer Name Role Phone Pete Stewart MD Primary Care Provider [phone] Source Comments [facility] [employer],non-owned Affiliates and Associated Physician Practices is amultiple site organization consisting of ambulatory clinics and hospital sitesin [place], [place], [place] and [place]. This disclosure is being madepursuant to the Care Everywhere program and may not contain all information available regarding this patient. Last updated 18.[facility] [employer] Allergies Active Allergy Reactions Criticality Noted Date Comments Penicillins Rash Medium 03/11/2014 Medications * This document contains information received from the source organization and may not represent a complete record from that organization. * Be aware that medications may not be up to date on this document. Alwaysverify current medications with the patient. Vit-Fe Fumarate-FA ( vitamin) 28-0.8 MG tablet Take 1 (one) tablet by mouth once daily Active busPIRone (Buspar) 15 MG tabletIndicatio ns:Anxiety Disorder Take 1 (one) tablet by mouth 2 times daily Reasons: Anxiety Disorder 60 tablet 5 Active busPIRone (Buspar) 15 MG tabletIndicatio ns:Anxiety Disorder Take 1 (one) tablet by mouth 2 times daily Reasons: Anxiety Disorder 60 tablet 5 03/12/20 25 Discontinu ed(Clinica l Decision) Active Problems Problem Noted Date Diagnosed Date Proteinuria affecting in second trimes ter 12/30/2024 Hx of section complicating BMI 40.0-44.9, adult 12/30/2024 Obesity affecting , antepartum 12/31/19 Severe obesity due to excess calories affecting in second trimester 12/02/2024 History of anemia 12/02/2024 History of section 12/02/2024 Estimated Date of Delivery Comme nts Yes 04/02/2025 Based on last me nstrual period of 06/26/2024 Encounters * This document contains information received from the source organization and may not represent a complete record from that organization. Date Type Department Care Team Description 03/22/2025 10:30 AM CDT - 03/22/2025 11:59 PM CDT Hospital Encounter [facility] [address] [place] [phone] Zoë Grider MD Discharge Disposition: Home or Self Care 03/15/2025 1:00 PM CDT - 03/15/2025 11:59 PM CDT Hospital Encounter [facility] [address] [place] [phone] Head, Annmarie Vivar MD Discharge Disposition: Home or Self Care 03/15/2025 Travel 03/12/2025 Telephone [facility] [address] [place] [id number] Yara Samuel, RN Refill Request 03/12/2025 Orders Only [facility] [address] [place] [address] [phone] Yara Samuel, RN Anxiety disorder affecting , antepartum (HCC) 03/03/2025 9:45 AM CDT - 03/03/2025 11:59 PM CDT Hospital Encounter [facility] [address] [place] [address] [phone] Joseph Lay MD Mead, Judith A, MD Discharge Disposition: Home or Self Care 02/22/2025 1:45 PM CDT - 02/22/2025 11:59 PM CDT Hospital Encounter [facility] [address] [place] [phone] Zoë Grider MD Discharge Disposition: Home or Self Care 02/15/2025 8:15 AM CDT - 02/15/2025 11:59 PM CDT Hospital Encounter [facility] [address] [place] [id number] Zoë Grider MD Discharge Disposition: Home or Self Care 02/12/2025 Telephone [facility] [address] [place] [address] [phone] Yara Samuel, RN Refill Request (Patient LM on RN line to report she is out of her buspar and is requesting refill. ) 02/12/2025 Orders Only [facility] [address] [place] [address] [id number] Yara Samuel RN 02/09/2025 9:45 AM CDT - 02/09/2025 11:59 PM CDT Hospital Encounter [facility] [address] [place] [address] [phone] Fernando Maguire MD Discharge Disposition: Home or Self Care 02/03/2025 9:45 AM CDT - 02/03/2025 11:59 PM CDT Hospital Encounter [facility] [address] [place] [address] [phone] Joseph Lay MD Discharge Disposition: Home or Self Care 01/20/2025 1:37 PM CDT - 01/20/2025 11:59 PM CDT Hospital Encounter [facility] [address] [place] [address] [id number] Fernando Maguire MD Discharge Disposition: Home or Self Care 01/06/2025 9:00 AM CDT - 01/06/2025 11:59 PM CDT Hospital Encounter [facility] [address] [place] [address] [phone] Hilary Castillo MD Discharge Disposition: Home or Self Care 12/30/2024 Telephone [facility] [address] [place] [phone] Yara Samuel RN LABS ONLY (Called patient to let her know that Dr. Castillo is wanting to add a lab test on to what we gave her last week. Patient has not gone for labs yet. Patient aware labs will be sent to [facility] but take printed out ones just incase. ) 12/23/2024 1:34 PM CDT - 12/23/2024 11:59 PM CDT Hospital Encounter [facility] [address] [place] [phone] Hilary Castillo MD Discharge Disposition: Home or Self Care from [...] on file Legal Sex Female 6:28 PM [employer]AG [employer] Gender Identity Not on file Sexual Orientation Not on file Last Filed Vital Signs Vital Sign Reading Time Taken Comments Blood Pressure 109/72 03/22/2025 11:19 AM CDT Pulse 101 03/22/2025 11:19 AM CDT Temperature 36.9 C (98.5 F) 03/11/2014 10:36 AM CDT Respiratory Rate 20 03/11/2014 10:3 6 AM CDT Oxygen Saturation 100% 03/11/2014 10: 36 AM CDT Inhaled Oxygen Concentration - - Weight 102.3 kg (225 lb 9.6 oz) 025 10:36 AM CDT Height 154.9 cm (5' 0.98) 12/30/2024 9:10 AM CD T Body Mass Index 42.65 12/30/2024 9:10 AM CDT Plan of Treatment Health Maintenance Due Date Last Done Comments HIV SCREENING 2007 HEPATITIS C SCREENING 06/15/2010 DTAP/TDAP/TD VACCINES (1 - Tdap) 2011 HEPATITIS B VACCINE (1 of 3 - 19+ 3-dose series) 2011 PAP SMEAR 2013 HPV VACCINE (1 - 3-dose SCDM series) 2019 DEPRESSION SCREENING 07/01/2024 OB-ONE HOUR GLUCOSE 12/25/2024 OB-TDAP CURRENT 01/01/2025 07/01/2006 OB-RHOGAM INJECTION 01/08/2025 OB-GROUP B STREP SCREEN 02/26/2025 COVID-19 VACCINE (1 - 2023-2 5 season) 2025 INFLUENZA VACCINE (#1) 2025 ZOSTER VACCINE (1 of 2) 2042 HIB [...] on patient's age to complete this topic Respiratory Syncytial Virus (RSV) Vaccine Pt: or over 60 yrs (No Doses Required) Completed Procedures Procedure Name Priority Date/Time Associated Diagnosis Comments BIOPHYSICAL PROFILE W NST Routine 03/22/2025 11:18 AM CDT Proteinuria affecting in second trimester (HCC) Encounter for other screening follow-up ([facility]) Severe obesity due to excess calories affecting in second trimester (HCC) BIOPHYSICAL PROFILE W NST Routine 03/15/2025 2:01 PM CDT Hx of section complicating (HCC) 32 weeks gestation of (HCC) Obesity affecting in third trimester, unspecified obesity type (HCC) Excessive growth affecting management of in second trimester, single or unspecified fetus (HCC) Encounter for ultrasound to assess growth (HCC) Encounter for other screening follow-up ([facility]) BIOPHYSICAL PROFILE W NST Routine 03/03/2025 9:49 AM CDT Hx of section complicating (HCC) 32 weeks gestation of (HCC) Obesity affecting in third trimester, unspecified obesity type (HCC) Excessive growth affecting management of in second trimester, single or unspecified fetus (HCC) Encounter for ultrasound to assess growth (HCC) Encounter for other screening follow-up (HCC) BIOPHYSICAL PROFILE W NST Routine 02/22/2025 2:04 PM CDT Hx of section complicating (HCC) 32 weeks gestation of (HCC) Obesity affecting in third trimester, unspecified obesity type (HCC) Excessive growth affecting management of in second trimester, single or unspecified fetus (HCC) Encounter for ultrasound to assess growth (HCC) Encounter for other screening follow-up (HCC) BIOPHYSICAL PROFILE W T Routine 02/15/2025 8:26 AM CDT Hx of section complicating (HCC) 32 weeks gestation of (HCC) Obesity affecting in third trimester, unspecified obesity type (HCC) Excessive growth affecting management of in second trimester, single or unspecified fetus (HCC) Encounter for ultrasound to assess growth (HCC) Encounter for other screening follow-up (HCC) BIOPHYSICAL PROFILE W T Routine 02/09/2025 10:20 AM CDT Hx of section complicating (HCC) 32 weeks gestation of (HCC) Obesity affecting in third trimester, unspecified obesity type (HCC) Excessive growth affecting management of in second trimester, single or unspecified fetus (HCC) Encounter for ultrasound to assess growth (HCC) Encounter for other screening follow-up (HCC) BIOPHYSICAL PROFILE W NST Routine 02/03/2025 10:03 AM CDT Hx of section complicating (HCC) 32 weeks gestation of (HCC) Obesity affecting in third trimester, unspecified obesity type (HCC) Excessive growth affecting management of in second trimester, single or unspecified fetus (HCC) Encounter for ultrasound to assess growth (HCC) Encounter for other screening follow-up (HCC) SONOGRAM - COMPLETE Routine 01/20/2025 3 :06 PM CDT 29 weeks gestation of (HCC) History of section Obesity affecting in third trimester, unspecified obesity type (HCC) History of anemia Encounter for ultrasound to assess growth (HCC) Excessive growth affecting management of mother in rolon in third trimester, antepartum (HCC) from Last 3 Months Results * Biophysical Profile w NST (03/22/2025 11:18 AM CDT) Only the most recent of7 resultswithin the time period is included. Linked Results Indication ======== Obesity complicating Large for dates Anxiety, maternal complicating Gestational proteinuria History ====== OB History 2. Para 1 [id number] 1. live 11/20/2018. Gest. age 39 w + 0 d. Weight 3,622 g. Sex of child: male. Details: delivery (primary LTCS) failure to progress in labor (2nd stage) Lab Tests Test Date Result NIPT Low risk, Male (per patient) Maternal Assessment = Physical Exam Height 155 cm, 5 ft 1 in. Initial weight 93 kg, 206 lb. Initial BMI 38.92 kg/m Method ====== Transabdominal ultrasound. View: Sufficient ========= Rolon . Number of fetuses: 1 Dating ====== Date Details Gest. age AKBAR LMP 06/26/2024 38 w + 3 d 04/02/2025 Stated AKBAR 38 w + 3 d 04/02/2025 Previous U/S 09/09/2024 GA, GA 11 w + 1 d 38 w + 6 d 03/30/2025 Assigned dating based on the LMP, selected on 11/30/2024 38 w + 3 d 04/02/2025 General Evaluation Cardiac activity present. FHR 143 bpm. Presentation: cephalic Placenta: Placental site: anterior Amniotic Fluid Assessment ===== Amount of AF: normal MVP 7.5 cm. USMAN 18.2 cm. Q1 5.2 cm, Q2 4.5 cm, Q3 1.1 cm, Q4 7.5 cm Biophysical Profile 2: breathing movements 2: Gross body movements 2: tone 2: Amniotic fluid volume NST: reactive 04/09 Biophysical profile score Non Stress Test NST interpretation: reactive. Test duration 22 min. Baseline FHR 125 bpm. Baseline variability: moderate. Accelerations: present. Decelerations: absent. Uterine activity: present Growth Overview = Exam date GA BPD (mm) HC (mm) AC (mm) FL (mm) HL (mm) EFW (g) 11/30/2024 22w 3d 54.1 48% 211.4 69% 195.1 90% 39.9 54% 41.2 98% 603 90% 12/22/2024 25w 4d 65.6 72% 248.1 75% 233.7 93% 49 65% 44.3 68% 1031 94% 01/20/2025 29w 5d 78.3 86% 293.4 88% 290.9 >99% 56.9 39% 53.2 81% 1866 96% 02/09/2025 32w 4d 84.6 84% 307.4 58% 327.8 >99% 63.4 43% 56.2 60% 2608 97% 03/15/2025 37w 3d 91.8 65% 331.9 36% 376.9 >99% 69.7 13% 63.6 68% 3801 95% Anatomy The following structures appear normal: Abdomen Stomach. Kidneys. Bladder. sex: male. Impression ========= Single, live, intrauterine at 38w3d The amniotic fluid volume is normal The biophysical profile is 04/09 Follow-up ======== Continue weekly testing Coding ====== Diagnoses O12.13: Gestational proteinuria O99.213: Obesity complicating O36.63X0: Maternal care for excessive growth O99.343, F41.9: Other mental disorders complicating , Anxiety disorder, unspecified O12.13: Gestational proteinuria O99.343, F41.9: Other mental disorders complicating , Anxiety disorder, unspecified O99.213: Obesity complicating O36.63X0: Maternal care for excessive growth Procedures 57787: US Uterus Limited 79818: [facility] Laterality Modality Other 03/22/2025 11:1 8 AM CDT us Zoë Grider MD [facility] ORDERABLES Edited Resu lt - Final * Sonogram - Complete (01/20/2025 3:06 PM CDT) Linked Results Indication ======== Large for dates 09/08/2024 1-hr GCT = 104 mg/dL Anemia complicating 12/11/2024 Hgb 11.1 g/dL Obesity complicating Prepregnancy BMI 38.9 Anxiety, maternal complicating current buspirone Gestational proteinuria 12/13/2024 proteinuria = 416 mg/day Hx of anemia History ====== OB History 2. Para 1 [id number] 1. live 11/20/2018. Gest. age 39 w + 0 d. Weight 3,622 g. Sex of child: male. Details: delivery (primary LTCS) failure to progress in labor (2nd stage) Lab Tests Test Date Result NIPT Low risk, Male (per patient) Maternal Assessment Physical Exam Height 155 cm, 5 ft 1 in. Weight 103 kg, 228 lb. Initial weight 93 kg, 206 lb. BMI 43.08 kg/m . Initial BMI 38.92 kg/m . Weight gain 10 kg, 22 lb Method ====== Transabdominal ultrasound. View: Sufficient ========= Rolon . Number of fetuses: 1 Dating ====== Date Details Gest. age AKBAR LMP 06/26/2024 29 w + 5 d 04/02/2025 Stated AKBAR 29 w + 5 d 04/02/2025 Previous U/S 09/09/2024 GA, GA 11 w + 1 d 30 w + 1 d 03/30/2025 U/S 01/20/2025 based upon AC, BPD, Femur, HC 31 w + 5 d 03/19/2025 Assigned dating based on the LMP, selected on 11/30/2024 29 w + 5 d 04/02/2025 General Evaluation Cardiac activity present. FHR 144 bpm. movements: visualized. Presentation: cephalic Placenta: Placental site: anterior Amniotic fluid: Amount of AF: normal. MVP 7.3 cm. USMAN 23.1 cm. Q1 6.9 cm, Q2 4.3 cm, Q3 4.6 cm, Q4 7.3 cm Biometry BPD 78.3 mm 31w 3d 86% Hadlock HC 293.4 mm 32w 3d 88% Hadlock AC 290.9 mm 33w 1d >99% Hadlock Femur 56.9 mm 29w 6d 39% Hadlock Humerus 53.2 mm 31w 0d 81% Jackson HC / AC 1.01 Weight Calculation: EFW 1,866 g 96% Hadlock EFW (lb,oz) 4 lb 2 oz EFW by Hadlock (XCE-OF-AT-FL) LGA Growth Overview Exam date GA BPD (mm) HC (mm) AC (mm) FL (mm) HL (mm) EFW (g) 11/30/2024 22w 3d 54.1 48% 211.4 69% 195.1 90% 39.9 54% 41.2 98% 603 90% 12/22/2024 25w 4d 65.6 72% 248.1 75% 233.7 93% 49 65% 44.3 68% 1031 94% 01/20/2025 29w 5d 78.3 86% 293.4 88% 290.9 >99% 56.9 39% 53.2 81% 1866 96% Anatomy The following structures appear normal: Abdomen Stomach. Kidneys. Bladder. sex: male. Impression ========= Single, live, intrauterine at 29w 5d The size is LGA The amniotic fluid volume is upper normal No malformations were seen within the limitations of ultrasound Comment ======== U/S cannot detect all structural, genetic, or functional , placental, or maternal abnormalities Follow-up ======== If no glucose challenge test since August, consider repeat Start 1x-weekly NST+BPP at 32 weeks Follow-up growth at 34 weeks Coding ====== Procedures [id number]: US Preg Uterus Follow Up [facility] PACS Anatomical Region Laterality Modality Other 01/20/2025 3:06 PM CDT Jacek Godoy MD [facility] ORDERABLES Edited Result - Final from Last 3 Months Insurance CIGNA CIGNA * Guarantor: Yoko Jain Account Type Relation to Patient Date of Phone Billing Address Personal/Family Spouse Care Teams Commodity Buyer Relationship Specialty Start Date End Date Pete Stewart MD PCP - General 03/11/14
--- OUTSIDE RECORDS SUMMARY | 2025-03-25 14:32 | XMS_ITS | Encounter Summary ---
Author Organization [facility] Address [address] [place] [address] Care Team Providers Care Door Puller Name Role Phone Pete Stewart MD Primary Care Provider [phone] Reason for Visit * Reason Onset Date Comments Refill Request 03/12/2025 Encounter Details Date Type Department Care Team (Late st Contact Info) Description 03/12/2025 Telephone [facility] Maternal & Care [address] [place] [phone] Yara Samuel RN Refill Request Social History Tobacco Use Types Packs/Day Years Used Date Smoking Tobacco: Never Alcohol Use Standard Drinks/Week Comments Yes 0 (1 standard drink = 0.6 oz pur e alcohol) Estimated Date of Delivery Comme nts Yes 04/02/2025 Based on last me nstrual period of 06/26/2024 Sex and Gender Information Value Date Recorded Sex Assigned at Not on file Legal Sex Female 6:28 PM [employer] Gender Identity Not on file Sexual Orientation Not on file documented as of this encounter Miscellaneous Notes * Telephone Encounter - Yara Samuel RN - 03/12/2025 11:52 AM CDT Received fax from [facility] requesting refill for patient's buspirone. Reviewed with Dr. Castillo today and orders for refill and to let patient know her PCP or OB would need to take over prescribing after delivery. RX eprescribed to [facility] today. Yara Samuel RN 03/12/2025 11:54 AM documented in this encounter Plan of Treatment Not on file documented as of this encounter Visit Diagnoses Diagnosis Proteinuria affecting in second trimester (HCC)- Primary Hx of section complicating (HCC) Previous delivery, unspecified as to episode of care or not applicable BMI 40.0-44.9, adult ([facility]) Body Mass Index 40.0-44.9, adult documented in this encounter Care Teams Door Puller Relationship Specialty Start Date End Date Pete Stewart MD PCP - General 03/11/14 documented as of this encounter
--- NOTE | 2025-03-25 15:05 | W.PM.OBCSD ---
OB - Delivery Note Procedure Delivery date: 03/25/25 Pre-op diagnosis: Previous Delivery Post-op Diagnosis: Same Procedure Performed: Repeat Secondary branch: low cervical, transverse Surgeon: Jacek Godoy MD Anesthesia type: Spinal Description of Procedure/Findings: Patient was prepped and draped in usual manner for this procedure. Pfannenstiel incision was made carried down to the fascia which was extended bilaterally the length of the skin incision. Superiorly and inferiorly fascia was dissected away from the rectus muscles which were bluntly dissected and peritoneum was readily entered. Bladder flap was developed difficulty uterus was scored with clear fluid noted. Vertex was delivered, rest the baby without difficulty and cord clamped cut. Placenta removed manually and uterus was exteriorized. Cleared of membranes clots and closed using 0 Monocryl in a running interlocking manner good approximation noted there were 2 small defects on lower thin segment which were rendered hemostatic with [id number] 0 Monocryl suture. Uterus turned the abdomen there was no bleeding and the entirety of the uterine incision was hemostatic. Fascia was then approximated using 0 Vicryl from left angle midline and the right angle to the midline in running manner. Subcutaneous tissue was approximated and skin was then approximated you cr. Patient was sent to recovery room in stable condition. Estimated Blood Loss: 820 Drains: Yes (Ortiz catheter) Packing: No Pathology: Yes (Placental) Complications: No immediate complications Condition: Stable Disposition: Floor Baby Gestational Age by Date: 39 Infant gender: Male presentation: vertex Placenta delivery description: Manual Removal Cord Vessel Description: 3 Vessels
[2025-03-25] MEDS: OXYTOCIN 30 UNITS/NS 500 ML 30 UNITS/500 ML BAG 125 UNITS IV CONT (15:26)
[2025-03-25] MEDS: KETOROLAC 15 MG/ML VIAL (*BKC) IV PUSH ×2 (15:28→20:25)
[2025-03-25] MEDS: SIMETHICONE 80 MG TAB.CHEW PO (20:17)
[2025-03-25] MEDS: DEXTROSE 5%/0.45% SOD CHL 1,000 ML 125 ML IV CONT (21:20)
--- NOTE | 2025-03-25 22:11 | OBPPTRN ---
Patient transferred to post room #288 via stretcher at 1827. Support person present. Oriented to unit, room, information board, rooming in, admission packet and security measures. Patient verbalizes understanding.
[2025-03-26 00:25] VITALS: BP 95/52; PULSE 75; RESP 16; TEMP 36.8; O2SAT 100
[2025-03-26] MEDS: KETOROLAC 15 MG/ML VIAL (*BKC) IV PUSH (03:44)
[2025-03-26 03:48] VITALS: BP 103/64; PULSE 78; RESP 18; TEMP 36.4; O2SAT 99
[2025-03-26] MEDS: ACETAMINOPHEN 500 MG TABLET 1000 MG PO ×4 (03:48→22:52)
[2025-03-26 05:26] LABS: Hematocrit 32.8 % (37.0-47.0); Hemoglobin 10.3 g/dL (12.0-15.0); Immature Granulocyte Percent A 2.0 % (0-0.5); Lymphocytes Absolute Auto 2.39 K/mm3 (0.9-3.2); Mean Corpuscular HGB Conc 31.4 g/dl (32-36); Mean Corpuscular Hemoglobin 27.8 pg (26-34); Mean Corpuscular Volume 88.6 fl (80-100); Nucleated Red Blood Cells Absolute Auto 0.000 K/mm3 (0.0-0.012); Nucleated Red Blood Cells Perc 0.0 % (0.0-0.2); Platelet Count Result 205 k/mm3 (150-375); Red Blood Count 3.70 M/mm3 (4.2-5.4); White Blood Count 16.8 K/mm3 (4.5-10.0)
[2025-03-26 07:40] VITALS: BP 103/71; PULSE 81; RESP 18; TEMP 36.6; O2SAT 100
[2025-03-26 08:00] VITALS: PULSE 81; RESP 18; O2SAT 100
--- NOTE | 2025-03-26 09:26 | P.PNOB_ITS ---
OB - PN: Subj Subjective Date/time seen: 03/26/25 09:26 S: Diet tolerated. Pain well controlled. Catheter out and has voided. O: VSS afebrile Abdomen positive bowel sounds soft appropriately tender. Incision covered. Labs: Noted A: 1. Postoperative day 1. Status post repeat delivery P: 1. Routine postop care OB - PN: Obj Data Labs 03/26/25 03:51 Labs: Laboratory Results - last 24 hr 03/25/25 03/26/25 12:22 03:51 WBC 15.7 H 16.8 H RBC 4.72 3.70 L Hgb 13.0 10.3 L Hct 40.8 32.8 L MCV 86.4 88.6 MCH 27.5 27.8 MCHC 31.9 L 31.4 L RDW 14.5 14.6 H Plt Count 225 205 MPV 10.9 H 11.4 H Immature Gran % (Auto) 1.9 H 2.0 H Neut % (Auto) 78.8 H 74.7 H Lymph % (Auto) 12.4 L 14.2 L Pennington % (Auto) 4.3 6.5 Eos % (Auto) 2.2 2.1 Baso % (Auto) 0.4 0.5 Lymph # (Auto) 1.95 2.39 Pennington # (Auto) 0.7 H 1.1 H Eos # (Auto) 0.4 H 0.4 H Baso # (Auto) 0.1 0.1 Abs Immat Gran (auto) 0.30 H 0.33 H Absolute Neuts (auto) 12.3 H 12.6 H Absolute Nucleated RBC 0.000 0.000 Nucleated RBC % 0.0 0.0 Syphilis IgG/IgM Ab Non-reactive Blood Type O Positive Antibody Screen Negative OB - PN A/P Time Spent With Patient Time: Total time spent is greater than 50% in coordination of care (as documented) at patient's floor/unit and/or counseling patient:
--- NOTE | 2025-03-26 10:11 | WPDANLDNPN2 ---
Anes-Prog Note L&D-Neuraxial Date/Time: 03/26/25 10:11 Patient feedback: Patient satisfied with post-operative pain management.
--- NOTE | 2025-03-26 10:11 | WPDANLDPN2 ---
Anes-Prog Note L&D Date/Time: 03/26/25 10:11 Neuro status: Neuro function grossly intact. Cardiovascular status: normal Respiratory status: normal Airway patency: baseline Mental status: baseline Post-Op hydration status: normal Vital Signs: Last Vital Signs Temp 36.6 C 03/26/25 07:40 Pulse 81 03/26/25 07:40 Resp 18 03/26/25 07:40 BP 103/71 03/26/25 07:40 Pulse Ox 100 03/26/25 07:40 O2 Del Method Room Air 03/25/25 19:10 Pain score (VAS): 0 I/O: Intake & Output 03/25/25 03/26/25 03/26/25 23:59 07:59 15:59 Intake Total 120 1000 Output Total 1825 Balance 120 -825 Post-procedural complaints: none Patient feedback: Patient satisfied with anesthetic care.
[2025-03-26] MEDS: MULTIVIT/MIN/PREN/FOL AC/IRON TABLET 1 TAB PO (10:12)
[2025-03-26] MEDS: IBUPROFEN 600 MG TABLET PO ×3 (10:12→22:51)
[2025-03-26] MEDS: DOCUSATE SODIUM 100 MG CAPSULE PO ×2 (10:12→16:40)
[2025-03-26] MEDS: SIMETHICONE 80 MG TAB.CHEW PO ×3 (10:12→16:42)
[2025-03-26 11:47] VITALS: BP 108/67; PULSE 85; RESP 16; TEMP 37.4; O2SAT 98
--- NOTE | 2025-03-26 13:50 | PC.NURSE ---
Consulted with patient to assess needs related to . Discussed with mother her successes, concerns and any questions she has. We reviewed working with the , supporting breast, protecting her nipples with an optimal deep latch, good positioning, and good hand washing. Encouraged understanding the benefits of skin to skin, responding to feeding cues, frequencies of feeding 8-12 times in 24 hours (approximately 2-3 hours), duration of feedings, milk production, intake/output feeding sheet and signs of adequate intake encouraging swallowing at the breast. Reviewed positioning and alignment, supporting breast, off-centered (asymmetrical latch) and leading with the chin with big, open, wide gape. latched optimally to the [left] breast in [football] position. Education given to the mother of how to visualize the suckling (with good rocking jaw motion) swallows (dropping of the lower jaw) and how to listen for drinking at the breast (the ka sound). The infant was [able] to maintain latch without discomfort to mother. Nipple care reviewed with optimal latch, good positioning and using clean hands when touching her breast. Resources used to facilitate learning were used from the [visual handouts/ tool/mom and baby guide]. Mother voiced understanding of the education shared, to call for assistance if the infant does not latch or if there is discomfort with . Reported to the Primary RN.
[2025-03-26] MEDS: oxyCODONE HCL (*CRX) 5 MG TAB IR PO ×2 (15:34→19:33)
[2025-03-27] MEDS: IBUPROFEN 600 MG TABLET PO ×2 (05:26→12:10)
[2025-03-27] MEDS: ACETAMINOPHEN 500 MG TABLET 1000 MG PO ×2 (05:26→12:09)
[2025-03-27] MEDS: DOCUSATE SODIUM 100 MG CAPSULE PO (07:53)
[2025-03-27] MEDS: SIMETHICONE 80 MG TAB.CHEW PO ×2 (07:53→12:10)
[2025-03-27] MEDS: MULTIVIT/MIN/PREN/FOL AC/IRON TABLET 1 TAB PO (07:53)
[2025-03-27 08:05] VITALS: BP 121/62; PULSE 80; RESP 16; TEMP 36.4; O2SAT 99
--- NOTE | 2025-03-27 10:12 | P.DS_ITS ---
DS: Admitting Diagnosis Discharge Date 03/27/2025 Admitting Diagnosis DS: Discharge Diagnosis Discharge Diagnosis (1) , delivered: Code(s): O80 - Encounter for full-term uncomplicated delivery Status: Acute OB - DS: Summary OB Procedures : None OB Procedures Intrapartum: OB Procedures: : None Peripartum Data Procedures: Procedures Operation Date: 03/25/25 13:58 Actual Procedure Side Surgeon p Section Jacek Godoy MD Operation Date: 03/25/25 14:00 <No data on this case meets the specified criteria> Time Spent with Patient Time attestation: Total time spent providing and/or coordinating discharge services: Discharge Plan Discharge Discharging Clinician: Jacek Godoy Patient Disposition: Home Activity: may shower, follow weight bearing status and pelvic rest Diet: as tolerated Wound Care Instructions: incision open to air Discharge Instructions: Education: Mom and Baby Guide Given to: Mother Follow-Up: Call your delivering provider's office for an appointment to be seen in: 4 Weeks Mom and baby should come to the [facility] for the follow-up appointment. Appointment Date/Time: March 29, 2025 at 10:00 am What to expect at your follow-up visit: Blood Pressure Check Physical Assessment Call [phone] if you are unable to keep your appointment time. BREAST CARE: * Wear a snug supportive bra. * For engorgement discomfort: Breast Feeding: * Apply warm moist washcloths * Express milk as needed to relieve engorgement * Wear loose clothing Bottle Feeding: * May apply ice packs * For sore nipples: * Identify correct latch-on * Apply warm moist washcloths before and after nursing * Air dry nipples after nursing * May apply Lansinoh cream to nipples ABDOMINAL INCISION: (if applicable) * Allow incision to air dry * Do NOT use lotions for powders on your incision * When showering, allow soap and water to run over the incision, but do not wash incision EPISIOTOMY/PERINEAL CARE: * Until bleeding stops, use your gus bottle after urinating * Change your pad frequently throughout the day * You may take sitz baths several times a day (fill your bathtub with warm water and soak for 20 minutes.) Do NOT bathe in the water * No tub baths until seen by your physician - You may shower ACTIVITY: * Rest as much as possible. * Do not exercise or lift anything heavier than your baby (such as laundry or other children.) * Avoid stairs or driving as much as possible. * Do not put anything into the vagina. No douching, tampons, or sexual activity until seen by physician. NOTIFY PHYSICIAN IF YOU HAVE ANY QUESTIONS OR IF ANY OF THE FOLLOWING SYMPTOMS OCCUR: * If your episiotomy or incision becomes red, swollen, or more painful than what you have experienced in the hospital. * If your vaginal bleeding becomes foul smelling. * If your vaginal bleeding becomes more heavy than a period or if your bleeding changes from pink to bright red. However, you may pass an occasional walnut- sized clot once or twice for the first week . * If you experience a sharp, shooting pain in you calves. * If you discover a hard, reddened area on your breast or if you experience flu- like symptoms. DIET: * Eat regular, well-balanced meals. * Drink plenty of fluids daily. If , drink to thirst. Staple removal in office Saturday next week Patient Instructions: Antibiotic Form Patient Language: [place] Stand Alone Forms: General Discharge Information Follow-up/Referrals: Jacek Godoy MD [Physician, [employer]] - 1 Week Discharge Medications: New ibuprofen 600 mg Tablet 600 mg PO Q6HR Qty: 30 0RF oxycodone 5 mg Tablet 5 mg PO Q4H PRN (Reason: Pain Rated 4-6) Qty: 20 0RF Continued DHA 200 mg capsule PO buspirone 10 mg tablet 15 mg PO BID Date of admission: 03/25/25 09:00 Primary Care Provider: UNKNOWN,DOCTOR Admitting Provider: Jacek Godoy Attending physician on admission: Jacek Godoy Condition: Stable
--- NOTE | 2025-03-27 10:22 | PC.NURSE ---
Introductions were made, then consulted with patient to assess needs related to . Mother states that is going well and denies pain when infant is nursing. Encouraged patient to call this RN to assess latch today or if further assistance is needed or if any questions arise. Patient states understanding. Communication board updated.
[2025-03-29 10:23] VITALS: BP 121/70; PULSE 98; RESP 20; TEMP 36.8; O2SAT 98
== END 2025-03-27 12:26 | disposition home or self-care (01) | DRG 788 ==
LOC: ANHLDR 18:16 → ANHOB2 18:29
PROVIDERS: Admitting Provider Obstetrics & Gynecology; Visit Provider Obstetrics & Gynecology
PROC: 10D00Z1 Extraction of Products of Conception, Low, Open Approach (ICD-10-PCS; CPT 59514; principal; 2025-03-25 13:00)
DX: O34.211 Maternal care for low transverse scar from previous cesarean delivery (principal); Z37.0 Single live birth; Z3A.38 38 weeks gestation of pregnancy
CPT/HCPCS: 36415; 85025; 86593; 86850; 86900; 86901; A9270; J1200; J1885; J2274; J2405; J2590; J2704; J3010; J7120